=== PATIENT | male | born 1985 | race American Indian/Alaskan Native ===

== ENCOUNTER 2016-07-04 21:11 | Emergency (ER) | payer OTHER ==
[2016-07-04] MEDS ORDERED: NACL 0.9% IR ONE (21:53)
[2016-07-04] MEDS ORDERED: BOOSTRIX IM ONE (21:54)
[2016-07-04] MEDS ORDERED: MOTRIN PO ONE (21:54)
--- NOTE | 2016-07-04 22:24 | Emergency Department Report ---
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 XglsYsg9wgWvolkPf+IBg3ALkK//CQalaXNucWP+m/Hvi0N1rq9hJxttuJkZSKGre4YMIJsqBbI2JD+ pifCdxAzcL7nWMDZDCZ3/i7pOJ3xSuSa/s1v59r/HWYKt7uuOMo/AKZ+ePxo+GEzR3zyO/Glxb/C+ 98YeDfHniS/+JOj/wDCvfH/PDKhg8AcY4d5zS+g6k5DWleH/wAI9/lRfv1yN5yZWjk/AAj3+tXt6PSk/ uBWjyt1sA3/4c/Gq93BTmjl5QsY6nNwA/c8z5E0Ew7/MHAla1g+GeseG/Ef2O++ u5iqn7d95iALUt7i2dwC4dFr4zx3tX/a8stUjt76yNHOY+pZcWbzqEv8ZllJysOHiZWc4WzD6/ 6T4xL05Y6lvNEVYuQF/hOaXrk7U4zESau7B/BMhxgon83M+M/COl/D/wCF/wAJ/Cs4031KjG2/ 0oeEurva2i+DZ5cqxJ4m/dClG0tLco+x9Lt/+frH+ yZOnjl8LO0IW05beV3vwQxrmN0hETcBp4RBTEwbfw7RY9Qf8E9m3rA6T00i565gQgjZbev0yp/ 1Jmgtio5iNG9vriLD5nylQWwGpX1H8m5U+p6Abat3MUmRCEM7Q3b6+w7bd75RZibRkHAIfsf/ALZdPJ9 /wog57VQyannuk3213r4VPQQ/+tqM0SBJp9t+H3xB+CN7NBso1J3ev6// ATiRam0mpeORae5z8z4iB8w1c73eVYt1GlikrAhn1CFJJQUk/YlPiyj4A/HnZ+A/Efi3XL// SJ2AoMlaMp3kQml+IQg28SrEcr8e9x9Q+QTgs6lRszhr5yzR8c+B/GY294B2JG+1C2Ntp+ txS0hb8TUpS8I3/gQG5zBTY12ke/727g5z9J8+l+G/E/yT4B2wzM6f9zL9exrpwEEU7mj+0qHXL6+m8+ 3/XHklkKCkk3oae+fuvk/4wYAF4Y6fhYp1+1BeDNsC8V+N/RMdejUG203djSSxY/o7lKh5E+1239n/ ANseMYLq9/3S5u9ex8y/AD/xhTR7L1CNECVKUMVTBPJMUaI6/BSSwstW/ZJ8U+YkIQh2Q1u+ QI1MmeEZyl/yOgh7v81b/au+NrgwtAjCwWTa3gPw7rhBm7+z76nuF9w4zE9r8G4ZaH9Vq+Zvi3cx/wBt /NAD0yrbhbNyqwhBz5j/ANXNF/YEEH2P/uDgg650BbR3D/wU7FzB+pL1U6SkH0/wv4u+NTrCmXszk99Q /tE/Fuamu2XqCnbJvdm+Ms1678+WO6OLY/O2xdqzLK/mbjMhI3u3qcda4/8AWx+gRN9zcxMl/ rQmOb3go+xXR/573PH+l4oA+M/gL8O9A+YwfNcI2E/D39xCj5T5Q/ Ts1z5yaQpJsBggJbiIwQyTy0nMcb0vz3h9kn6L7P79Ce5Ie9q/6Ho+ x6RE6rnyeZkCtJyk3KlR5ocem4u/t/u8+Lz0Bzfs55o/4xr9zAwEYu6M05iQ2VZ7aV54YdB/ tV2hkkvcMS32B3z9Aymem56B1e5V/wAyNpX+hLQ5bqv5BosBkG0lO4gEsSQ/AIx5m/z4e3T/AKb4/wCu /b/u4TWxS19/WrtZscisFZdy7/VP5/q9k4ESsVBYpqd7/X2+srvfhlFnmKJZ9nyzfs8M/X5z/ K1ORfyFyfOsNyUh/wC//h+L8kWvZXFGFKWjA8Nc/fV0fgB7s3lSAvDQckOnv/BvA/8Ar5// RK3FBGQea7PxSSShTwk4/eGlc510q9RGc7mPKmVo/wB//X4bbjq5EWYUpuibJkg+X04zjt/ j0CozrU2Qsx0HBn0Z9RnRcAbCiQf6i04d/nn6Hnj/AA/J8ysPq2lYzq0msL5Ogak22fJn+Xn9x/ 7W86oZYttwSuhswo/+eiefL/qf9H/5dz/jvIZ2loXo+4fXf+YOL0pqWECcy/nAkiUGEOPd3trHUU/ 2i3nS2V9n5K/0PGcivH/g74c8Z+EkO1bT90WsC0wB+Fvwb/aE+Z0nrzdA89B6k7+KOut3GzNvK/ kA4ZgFWS+zf23o+n/Yj5C1Z4y7B1yeRi/+Mn4JcE9I48x/4ZDsob68ORHhxoox9abwo2K36/nXV/ AHT7q0+CtvVBnGeX58BpwxY7p8pGneV1+m6VPx2/7TF5Yma/sFW3+hZtKAON/auis9f/YS+ RV6rMjwLbXcp+S8p6mVmgyx01lmJeT6NjB/DmpWM/8Apn2e/fTD9KkVgGotHxOh+ xNzr5MqrCB2D75cF2fc/NUZ47J1EtsV3mj6xPgsmdpBqU3AgB3AS9ku9YvKbMbGu+ EEQHD3y2s7y1xWUjDCqiuH/BBukibbuB2Vdzb+hagAooooA/Kgl39Q4QSCJ5YBr3CD4Om90+ TI8UYkBhZh8NT/AKTa+VtkHdlpy0Y4lK2jSfhCQm+D/wn5d4N4F11x/oPT6dB4t9q2l6dWC5V+ KSXgLZqOzDcyT67gMxB1zxuEBi7HSuzs6aqdh3G4qlqr/dPz6n8N6GX+X2mFdmpu4+G/ 6waiNoA3pvp83/Uq4GmMeLVJdHGd7ZzgRjp++JbmVf8U3+ dmO7l2ZBf8Scx9DbXFFo4PqBNkis15Grv7C6ejF7SMkB72Tg/P3x53PD+Q0Cc0Zs+Jro9KgU68gi0lh/ 6L/md2nO5m/bYkn2DFQBEqZ+wDbch139p+mf1/GvSNHXyhCy/u2b5H/wCuXbJH/ wBavJfCsyRWMMLSszR/uZOP+Wv/IZ87x0I/8UjjvimXvGtfGwx5ObxVge+X+ m0LTwQWm6UaOotoMCCu5myntQ3xCX/54+fb/fPJau0PEYZ81T5R49gl7Bi26spPCNo7/ fVvegJzZjjj8OM43g2NoSKk6+eP/rApgTfTNJVLd7KZk8Vmb+R9mow1DIlcey19bndx+sXttDJqj+ RD5EH+nXFt9p/0W3/5P2lS1drabH1lEgPrrvde/wL8CSJ8jist96/ZIbq7OZEwIicvR/ 48por038mzuVCxv2FLbWr+v5/1/KkUyolDHRAad45/wx/rJ703IOrq20Tt94Pl522WX9n/n/Df0tdUgT +GP7/p/tG97xdHVlXW/vRqYRo3mjA+hLDe2Gy/ADk+vHwOu7orgRZ2TNJ3NRmhp6iS5/ pgve7QSL0egtvz+Tjj3/5Kq4wrEietGL8tgG1ciPn3leV+b/zx/T+Va+unsHzPr995pC/P+ fkokAwpUhZVXE6mL3It4CDlNd/a74c9bbn+ DSl7qZ0qplImmvgYXWdFvj64W2Qvl29Q7Tke9kw24y9Ar7R9j/f7Tsqnn98llYcY/e2p9/rz9T1/wrc/ i3fxf3/4/T/6/Bba6vH7lOoN7GqelipaO16i0+pT2RHB1NCJ3A/+hpHg8ny/ 3vERbrjE6Qqdzh9ZBnTeBP0f/q9gD6EnTJv/n4+2fn2Z5M0e4090lw07+/2//X785/VvT9pOXZ1mWckf /wD1/zVvk06BTUoKamUEqAyXIudTe/H/AD/0gm58mDbSZhnPjBkc32iq0tpnMog/TgpLYtz110/8/ Xx77x65hGhPcmGzsbefZk84+/fw9SJTLp3symp7DM7TJOqjqtJifsEM2q8hL/j+1L/p41H9x/oQ/GvM/ aN5WfeFryv7T+QVzjR2yV+RWxR2K78lbsWarE8858tNn2yrKuP/AJdPtH/FL/ZVhOmJ9p/y+aJkb8C2/ bFbd08HfylL6q/N94W8zd0pyvt7v27Y5/efbPDn7+45NCxyRTy1T/T9847t+n2G2z/pxs6t/BnRJPib+ 7P2SxIBRIcVLeJhSwi/YCawiefsmUmzt2M+C/gvvyVPgOvMxmj2j/ A7HDGvy0K1EJX5DNjLrD1zvUZJHIcvkjAtxvaM+Rv29PB+ jrJW5IR1fnLZnws4mvsgg396MD67aDp2rkJcCecBuoszH7l/8vEkB1BcQGjYSdd1+GCg2LkS1N/ V6n7kn8H7smvL1E2z7g7mqsE/lsxzGsS1K58/YbY/9d+K/a/ TOX2k9D9uqFhwmtY8nvjg4dviKZx0l7qopU2jzx0ow9V2LfHmNP7zJDxH/kA5ZtV1VVB2mG9V1GrEyJe /Zy8c+MvgPqTukEklza/HfejmamlmlcEgd7T74m7DsPBylj7yu1opcEF6Uc8JoiBl/wCCOsedH/ TWfHpP140J7CHp+bVw7teuR/GPhybz/H35muegzfH+gnp/plYtqVYtGyszN/asb4yG7Uc/nkZrW+ NWoald/IdnPo3tJxkqYqevS5PjM4vdfI6d4Jfk/wDCK+MbMfZ+/wDwi/xHWZc1Y1a+x/ bLyhjbpNSu1M6QSRk0eLkJAlgq7cbXn7/Ac00u0nH5rLdbWY9hlY/6ab/w/[place]/ACi2dOiVs4fgjuio/ yz06f/KTmbCm5uXFv97x/25vMPb/wH/fVkoPArNAfYKiPz2e9Li0+Z/wA9/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/ fCQFtQDfENvpe90y8z77coZMPDXPIxFIu4/AL/uf55/+t0qbz/9j/x7/wCxoAsUVX8//Y/8e/ 7Yxkhb4SdnjKA/QNq0hz3kBAPRPx1b9g/76H+Ny/8AfQ/rbMmXCm1i7q/76H+PK8vb6cDO5cHGY/ hEqr9Tt/HUN2V6j7gzmv/b8o9bv69Ri4/l+nr3/GqMtxt+4uUq8T4/Ofz4+o9P+ 8xwEbPDry5opz9PgmCyaiMl51+0xI6QWVrc7sWKS/df9MpM/p28j/x4BU2kvwVXtcIU0/fE0p7/ CJKl7M9WXrSxZUO4d8al/peO8DedYIK3l2tWqKd8BdrXdT0qyxnBnAfVNUC/7i0l5Ikn/wBHH2n/ SEY6jeCo+0H/AB+2Y/3eobFPbEl5P/s7+NbM5XGoEwVUyC8aiseaPp3AhO3X27+vP9Htv+Pj/ oui1N1n4VzoTqbdYsVWLtQ/mLN6VQO27bv0Q+Imn4wooD+y6VZ/5Qbgo93jkYy/lKjPV2MQ+yf8/uh/ el3Uz9f6e012T/Tpt6f6Ww0tui9u1ZAfHZeEe9szB7XNW9hsQ+y+poHOSVI5ekAq5a4K/ V28PZq1Kbg5A/jf8B/BNhbXPkyb/kR6MuU6PvscptefLm1WqOS3G1Up416pYWClQwmi2UMB143+ Wzf8XklHD0oP1kliELiP1Jx/VpeU2Zo8jvVEspicJtumKlwlJ0GaEy2Gi9BkvU/sE7dH3D8R/ zgsJ7sDuVUU9R6PPLNASB4h/cMLK4k5q2VW7nnvvdcp4U9hoCmzZnC5IwftxpOHs9ZQir/Dq406/ iOXy8S3tI/NOUogSSdYx4I22q6DpMg3okWVatEPScjAExaktWXJqt6jP0nvrUVr1ai/ hkiZc5chGw79Mk/coR9EW7s23Xm45/aZ+C+mftF/A34i/Bq+ 9t52K49R2NaZq56x13QOTchh217K1lpEmmmE6sbytfZuC+DvG+sdSMFR3MX/XYp7X1gMOx/ UN8YhSTY0o+LQP5iaTn1f2x0KhhubhEo6270Av03phKVmZ8T9Omg07TsQa4UG/pNv/ ZPyrCg1EakkSNY4okH/4Hy1bcGcJ9Pl0Bx1g+GApvw4ZKIxk/L9s992hEn907D925GhmSvzT1Q7/ gLGzZ8icjemaNxg4UJGWS5RP3eM7Cz++bFeQkvITr7Z5/v5NHD0b6/0yz9+O0Lje2IexltKp341vj+ PJGKAPZrOViNrMxHX/wDV0/tvxKQMpSP4zy/0z/S3U2osLi6lw6A/v0aXfW9N/Hv4z/ R79FbJRW3X6JfKc/Lb8pkKie0gNf9oyrmwt/ C5rQ0ogJmJzeT0mcXecb0c5vrwvPWnyiE0bxzwzazIdpY/AIJ+/sPXxF7w/ oF2LYnGv6dyEI0gGILwCUdoyz6V23mf+8Z+P/WjnMu12P2M+HLXxVZ+ P8TCWKRtcnX5y4HRNa3hfTasteK0pqto2Fai4yRDw5zcdmg3VvPPjHaqQlbhx8PL16DTa2/ ztWL9IAhoPuMe4HfkbVhOtTYW5xKoYzj8qEFhlMHmnWr967SsIsSGfrVrK9ZLjSQtAZXhD3/ up81iBKSVywrrjcvJZuW4uJ2UA4Ybp9d44D/OWqp9Ej7093jwbofio+/I/wDq0/Zryd1oP6cORYcZuJ/ gf/6j+kZ5P9k6ZX1lYlG5wytywryolc2ru3vSSW8xtzrrq/0GGCf/MHy5o0MQ0o/ EFGDqsesaeB20l3lfPR0/+f8XerObH/9OLNAk1z/r+waosIHTnJwUNwtXW7k++aab95I+e/ 8AXvxxxXyfe/SCkxqOok4k1ky2N3lnnyZcZXf27eFs5Qh63GhwX01f7gl00e475e7/5Cl3Z/ 1IZzaqgq5U5CvOsJM2WjhBdkSMRbTzW2I+Pdwf+W0Hf7R/838SE3FsX2N9a0ZuDSSLp2R/c7Hmh/ dXFnLP/qPIn/0lyk5i5KdOK29LlF3NKn6YqR0+5NtqV/E12wipSC/5jE8H/MQt+/8buUl8K/ FXh7hB32YKYFLD42ogLB4N8SVJ/wAu83+kfh3/PQ6273V/GzhbkJ3Xslv1kdKaZinNN++w1O30e/ zxKrAuzCD0SHT/a1CNfdq/SEJfXq2JNwEXaa773ahtRlCjF0G7tdPM+8jmtZ+ DSQG8aok4xhplMU2Ca8y3+3/6/goB29502RPi882FlA5vj9ktOE8tuV1a3ri4TwHk2fBoBh/ mH2T1o4xjI7r3cf5kx/CvUHmUfebaw+vOf1/n3/HCwoimzjL28ia/KudvLxcbmbKrx1/ u38WNo3q9m8BQKRlEuoj94/FrT5E9E/xbVXr+v+T+QMTH5zX8y7Xx1f9bs/631/THxUU1uxKK1Etl8+/ 3u7jrXqvsXNwsHp83lC/6z/JP5Z/TnR8b9oUtqdSPUhZ4yn++QeXHc/vvIghg/wCPu2/1/wDomLX/ AInF5/0+LYYRR5bGlJKhvMyFcfeimq9K+ON4Qt5FkpwN9C5ijzfntfaqq3anxPPb9kh/0532pWP/ MM41f9X8+kP+FvqqbQqIK3hxjheIM3H63t+PrvdFAucf0i3w26pK1BvWkzfbXDhvl/aLz4v+N/ qvvQfkcX5r6t4czZtg9gicEhP9f+Likeg3Hzv3Qjnp+QnS0P7VlDb6icaoUA+eZ9f0NJ0PWbbOoJigOA /QstWOPNnSPxG3yrgeI/EBwvqE6xn/AOg/2wT+u57I7xCtv0iQcK3L+Otxi7jqi3bShbRdjRkRQ2UpAt +I/aG458o52n/HUoViH7Z48x7VK4Vd9cq8YXqww2vhDvf2Zh5pMQE3YHGJEDWYTXKSAIOAFgl8XztnwB +NPh+3+F37a/cP5MKtuBz/+4V9QeLAck45SGknVJN2esRAeKkgR0VTqDi5xh6RuiW4N2TvIqt+ artfbh3j10WmXu7x9lxJwWgwdmNORA09/hF1J/8Arnivz/5R61kqc3w4mwJcZ/bN7J3Lr4f22/ y7GyKuHju08QW2eIMy/bAWhzT9QKgX+Z5jBzUspTdU8owLqs8RkB9qh2c0peP3A344V88l+ 1UAHyfrWmrqfhnUPDMzOlrqUN/JOdyKrLP48NZuBu0b5/7UcIqoXipwBNOjyx4Aab78ofqacp5Aff8eU +xm8i+hzn/Rx9ogn/8AbD/IvgFl5YnE183N/ GpajzYwMjEy0XdiX7z1Hk4rj6yaite2C4kDOSJ7X00b9Pc8qdA+SS77lUrPb9jb0tFClHd/ OGE9i93v0RrgC0smX67lvkmYvtb2vwPexQGiH8B6v1V6q8ycIrqmH3btzrA/YSYvAw0vtsYirQ3/ 9kt1sAbB/wD9O+f6l0JbfAE1VgjfQ/g949pZd97A4hAcKqIEPsp/Nv1e1brXYFt83dq9qcmM/j8z0+ 8qjzPm/uf6xz0/z+FwmJ0YJWT7lpl+BP7EBh92/wC/564+k1aKoYoHg0ht8dHt+enUf5/ ekfmCZ1CbvMeaqz/z06j/AD/d1MHOTJIATEWLDLTTDPGRWH/hVdvTp0+jCYtEgd9efDK/ep8g/dYHkcc /9O/2j/P+hjUKklmEatnyunv+Mg3IJY8JXpUXCHPn+vZFO3eMD/5Yj/LpwEShYGMWj93pqbM/ zRvh6uf5/Wr3Ae2xpkkZ2T33rZYx672diQOpSG5nK5N5k/y/zgADfBha+qgDmtpZQTwh9g+ wdPJkDxeTfarcTef/JC1Xd81Ym/0U/zG7I7xFkc0qSs/5zo19JM7/fEwmQG2UoBS/AI+ h6n6ZgM1ybjoFc9+jgX1K4lB47g/hIviBr1/pNphDh2hVp2Qohrr8+/0GC4+hvonL2Mh/ AgW572AlE5e3V/j/MW3HWcGfFyb8B+WLH9nxs4Y+P9wrJoyEW7mbW8F+WDtymZbJo5f2mffel4Zl/ vRUFsasMh0wrA8E/Djw/yBooxJ5oqmijii1ph+h3Nj9t+2SeCK91/aY45ZOeo4Qr1cS6mil1st2VcIaG /lA3PgSaupyUw0+z1o/6lnzKeYxRVHejhf6CoL02wfWATeRcsyMlcZXa6Uhrb9FH4+ Aafn9uy2XnWxzF1QhjP0AUYBJgzLw5i00mfxbTXmWfHckxZ/mQzp6l2l4RFZ4qsAfYHthj7me/ azFikmiMWyn96gJH1cZZdjSMMsopeIq2o2yg4wir3jyavQzd68gW9QjH5qvIgfA9S/cT2ocA6vWx/ uD6hL9K9V9B+MmZZmmzb6c1aOeXcB700kZWzRcZ+PNnsfsAdVnYkzMaK2AzJqOY4CqlHjefdE/ZNnaV+ voYbVPlSPfe1xUUkX0Gze+aN+yX8ftA+ZMb1w9T4+D3xO+JC19p9uhm1Obc1t1O/jH8K/GEGl/ AVgdnlyvZBQ4n5m+F/H/HCT63sPww6Vcq8H8lQ4NXrg7R43w9Wu5LO1qYntNw7df6Xk7Sb+ea9t/ 1YA8JOI156kk5aICFXT9H/2kPC/hXXrlfOjj/wCER+O2g+YLp7CcN/AjDy5i999V/NjCS5cxY/ g1Zhi8yB7gX0kd0fGsCAbazknb8/p3/Xc5NWjS/tV/sY/grgi2tQuEKr8/aq+IacVEdG1I7Yt517V1B/ jX4h+TO4R4FA0WwXtBeQ3F0x+KjKPn1TTT0lPoU0SqY7oj/hYcXaf6SdAKYO/Janes/gv3mIiMpL/AIKR/ t5+RYZ1q5z7Ed22YpV6tjTZ/aLm6+twWzCf76LS2UvXyE1Ol8yl7kdfeEQr6s5kumvdbPbztb6id5q/ 8FA/iF/wUL+H8ff2Ygo/TPP3nfU1Grk09K7by/Hp/sfg39O5U6aZoV4neGtS5p9Mwe6tduf1K/gvDLqi +X7PUkILFk8kwb3avp/1QESg1di6Xy4EG1MV+Mhu5dX19/F/9of4L/vBlXoqA7p+ Wxz5vaOw2MLli4LtpmuVfvJ2BO/MWk89sQoTfy9W/fo3QcljTmixqVOhbhuq2yynvHznlhdIk4wOQS7k / xQPVXEw2FRcReCWPdgrRsI78kJLXbevMoO6aDkNJmyXyZp027FoCjZkFQsG2im1MTClqBVjUzUzGXCiX 9inhpkW0Tze +pms8Vh/watuPNAeHuojKk6jdiKjbNAGo+gGUYw+W25m6/3SXKMQ8/X1/tCM6k7gNgKP8P+ Fj2Mn2X5c14/ F2BLlWZ7h62wPI90VaLoBqPxEeo9rb2bKegNnT9PDOgq1EM5HOtaD8pVHKKL2KXV73Hm08H8vALQRXuM qfX +v+ UxOa6k620DGmFzQn8T9QgMWaSgFYwGYzymEddbYg0q4DyGcLAADhneRrVWxcRWf46cgAtMlGqymThICW mHFyO5vRVOthCMuF8iehDWfAaxGfc /C++2YnljFPfgBF5O2v38jA6pn/Z7kO4M52OuSRgo5jAg9Eu/6yDsi7RD0QLyaL0/vTJ7C7Q4eoL+ lw2ul+IIZb+ur4yWOo4BhBMlF/imoXLtjfLyQ1sZYP/03SrX/AI/P/Bo6p1zCjko9ftwY/g/5a/5+ vXPtVfU/U5z3tbeaV1Dv6zXecy22cR7nj84epz+J6YXsCwKpRgcZB787gpphZBmAHPpTt91T0hC32m/ 49tRt+06M29QcYqqm5F0tUX6E44g+vtYuIXltrDz/LEW2q1uNr/v5rGC3/jGXt5Cn/TeM/ UueSs3V0qww6qK4jQeG0+9IYftHp/r+yjPYPImLAWGel9J7ydR6WKlwLtjG1gr6GxSA2uvwhkAg+ dbf88/J87z/AF/5+P8ASjx+WIyl3stWsVgERqg/ANf/AD+fFYouFErMrMrR/In/AD1f0/8Ar/ 8K798TYky4mWIV4j8/z3/SgSy1SkTmsivNpDJ6/c9s/Tv/JOff321U5jQacJqjb64kkr8+ eDwUet7CGmRNLHAuSBG39g/j/TGDXKuzYVtzb1+56J6/dBEo4KrdMoqe3LIHq9z0ZqrtvKoJAxX7MetL /tEX3wp+J9jq+r/MG0SdX5V3lwDxX14/1Lw/Jqfxe+JvirW/B3wz1G+5LDkVOm8IcR4R4I/ VqLcK7l7IdNkIczwxc6omMdv7rcvOP518Mutp/u8D/bSF7qL06F/ eIaf00dCR2gvcsTeoUh0p0oynCo93bnLRMqmG4LPo16Z0NLtEh/ap/lqmX6EsQWRY+ 3Rz1bfhueC752wvQy0Uq+RlDafNk6j+D/H/FHLXbX6v+IDj0G3eK8V+ CNxkm65o5JbGurvskDVVKpSfhXpsmtjN5Budp2h/ZySWTp0p6Bt/nZEBmlmsR4v9z+KrDwxY+ IsHwG9p3adMHyxNMxnW23llXOj2+sBhUDHNRKVyarqVahvwBLfuCzPcTMtJf3ZNUKf5En39+ epR4LGKzOHly5n5REVzj9N/6Y8Wuv793PbFoWNn0d9Ve28C3RqQjBFjXfgf3AUDKu462H0B+ AbLiiNfjjtPFMVdsa3Mo0l0a1+q+DqHtQ7c2WeK77idL9HcBJ7Ttm94bha6N+MXwr8M/s4/ oRgHjuE2X8CH/GgvFoF2Q/GJgy6X3YpLQtUonF/AniuyHwl+SmemB9U83OcQ1j4ER/G/bQzz88bcM34/ mxbrfcl073Y54z2E0/Yw0L2KXiVpUtb/AJa8H+f6a2qdp/kGU8P89I3guks/ QBqlg6wD85UyDC5yOUdDFiAMw4q/fk5UjnN3pW+j4xqUoE+EXg/W0LUNc2eiR/ KpmGfIF9akWXrZ39Rp5onk7vK+z+M1hx1KTz3vq90KbG/Qj/dIh53tSw1cIlbo9bw2Dr/3NwPX/ WQldMo0IUR81Sz89EmWn4oFm5qJ1Fsdc2Gdu8l3qkOJWkp/MGKgaSu0foXpkwMju6S//H1a/wCmaP55/ wBC+l2y7kwrd9Xhi1ry5hp3E9A18+GY1EwNn1oaEoe/AJY/9FqL1T4n/stv9o+2/ZbTNmf+ 7jiV1JE8OzeDewwi/wA9Oo/z/e5WVvjcaR6TNXK9fk67snoEA3nUV+o/0n/E1Pr2t2zlg1lB/ r1OlmsLHOSyroQoOXQXN9RFe6at71/6EWWQALWFKQ8pY/X/EBz8hWWbxdKKrKvRYuO4ww8omjK+eeG/ jpeCg2a/L6f54/o0SSUvvb4fKSDp3HgwCK/AmP8niNLbkdjh8fP25/Dp+ubb/y5E4HTKkuVdO/79/ nTkHpe9thVe7liPjujyl+jLCmgvmWI557JfZjg3/wDrzc/6P/pHT/i9s23ROc1a2ILuqD0E6u0PA+ qSfc0Xu5Z7JMgv5itJ468x2iBfJslRxvgPN89JmHN6tInR/Clp5f458/05j/Tv+MY8Hvhr9gr5t46Kn2 /fPFR0rFAFoP4sjDMx4xU/119Bo/1Wj25g8/6Gr2jkvl/UVIjjMoSzeG0YmZJHzGdM25+ nWwIh8k0edD90dd9PhTQ6+m8deR0Yl/pJzXK2K06ip+fPR/iEhPT0dyH/ZU+Gv7V/ w12xov7mmSi3rub4A4V4BstC1VHZ3XadjVwylA0G/fN6g6pw0nqE/iD8P/Pdwkf5Uz98y9m05dmAlns/ ykv0w1C5k/J2etXindg6ScaBx5o1c+z7+xR8N/jY767V0oPfS/dK3Bcovygd8dEr+ RAmN6LKaNyQP7ZFAic57PnWUdfYxBagCwb2GNdhw7NYN89jJm30eFIA5KA30W4uie1s38xd1I9ZBBd5A /ZW+XojTS4S/wDhKvjW+sftE+ CbkrN0hygmnn3L33tpVpujJOBlVp1AuBUk6RuIcJ6Ypn2ia7ivzAa5LkstA262WvzmVnO1k073NEEJ+ 1yQ7OFgojCSCUYEIcbtrA10/y95Teo3u/Y5/aEt/Y0sFwjV7D+Hep/OszxWgOCAGqqUZbOm7JrR8BY/ jP3diBHq5c2lbfKK44UHa8P7KfcXFNLYsWnKr2p1z7cH/ XorhIbvG1d6bw57MltB3CFbpSSEsQAcIkTt5/6c3u6ibCE1UndH8bdTZ7l2/ ERk1Ul5i8hq6v0GC3B5cCPXued40I4hs91rVKOzE5kyhQmfQI7sgR+Esvd9zpaKeyvh2VVlScn0C/ Eap79U8zh9UkGkoao3NlT+w+B/EkEA/pSLa8svS8Qz0O3WespW3p7N5pGGwjW6ZS/5qcQF9YCVhHEs+ ZW/o8urzj4eirLrHINIZKPfrVoakt/z2/wnyeTOr0H9mEg/z/8AX5/i56m8mdZVyzL/x/ 1LC8Zn8WPgZu4/NzLU26j6uwtk07qVy0fwli2ge4qphft/AMFRP23/ABv+xB+wb8c/2mPhJYfD/wAQfE /4YH4Y/wDCK+KZR6l3o5ffayYdt0J/i53U3OVnFUozmD2I5zp1KkLivLv9J/sXiLT/ACtUtrGa4+ 2Gzd5yc/kBaLiNzoDoY6IU3tZq75rMf3jJ1L7yL0xfbQ60g/7u8D8wJ5f94eiA1pp3VGF+ Rfnh13dV4tS59cx2oO/4wWg+KPxCHw3/ALAv/dehYGx55Nb/hL4t+IyWYyBOvi9j/ SqcT2yf9pK5L7lMOiwsvYiHh8xksFuBHHLp0fBF+Vfwv/4KX/0HDh57PvGrii6q/Dz/AHD4ltU+ UiVDjC2UlQCN/grXJvFNjokmt+AtCEcUBqDs9s78eKu432B2sV/2P0kDmM8+w2vmzqsIh157m+ u0S3locXK+In/DQd4J9OqKwX0K/kG1UryJ/jPD3G0VxV2VxYMbA0q+WpoaMrfYnm5yjS1C+CtCv/ MslyD47yNO318/SBpPsxaw0ru0g62TQR7XRb9n/IeOrga3thi2GA+G/wDwS9/5AHsoM2X3O/Dr4f8A/ GE18ytps6Y+GqhKm52M7X+V1iqfBLQ5O+CNGpuW1N4AXvj/Yhv7/ KD54YqRdpDYtm2Cy2udtSNM3v5c9bIeS00qbQ/wTK/1JNynp6X/MWh5GmDo/TXK7wMdJ0A+I/ v4cM5O6hoS/Yzaaut+VEOOx0bf9pMoi7/No6YjF2/L83BO7IwqT5+k2lxqugHawgvAs7dodTY/ fG9Z7Mi/t3/E/wDbg/YM+Y83Sspy4m2dlHAkP2Jo9Fc1a6c3gjJ1ktHAeI5Fbarwi+ Aom38awDnIvXyT0c2021/TeGax2FyuekJme+jyj61s5fq4Vs88+1+2W18veUNLc4aNmOk+ W0JklImiiI4+c+n5d/8ABM//ISPisJp7gC5en5Hju9/N042bJI21YuHq/Eb+17j4V+YcHNhPn6V/ SJKa5JvVdimLqvuhtsjM8Uad5oM/AJce27f2S5L9s3PIsIB6Ec9iCMn/ WFCCJ6AOObeOyN9vJ6kobyWCw+3+u9Votu6uB2v09BkJc+nU/wCif+T3+tQHtIddZZdat5qtjMeY+ mmxu6bEc/0751MYw3G55QnwczGEOftoWhd2r8t/n3+teKT/OPcy9f4Mf3ubZIwcn8zp9L5nqwo/AMt/ kBha8Foy0qF21dBcpzcrxcbYPYroE6736ApxYb5X74sU/yZ2oRqcfuOMtITsy6/+tQAa+n7HxkSdimH/ MThai7c/AK8d/wAqw3+6fw/oW3bHyN7Nohrqlm3VR/mn70xl2/Osd2bp/D2/z/8Aq/ PqTxtZ7Px6eyqVo4WSH4J7nmypG0Z8K84My4AYjL41Il5Ao2j7Tzsb66cs2T/vCt74S/Y5+B0+ o8iNdeYn74Or/kG2daaYS5cB0g+OXiPV/lLoiynq2xybZMZJE6pagflcokP1mMH5Ro/mf+ 8YWyT08YSA1E+V0saizj6jC/c82LcDsrd7JmfZRyOkNg7D+2TwW9z/AKTp/fov4DRSKGwVd+h/8U3oep /6bZ2P+eHq2f7PcStvDi9WancoFVm+ v3OIrSh5Ze7I2iSCUWnV1FD4ZCcbavKXjRP1iAGSyxodpHNRSSFBdcmyNjklhMNITJCKyds5lAhMk/ QX5ez328NxErkm+L/B/hu2+LngOCwSH+0br4g/QOOsK3myD8FhO4fPSwsITM/g+ x6BjwPN1IEmtR3hFM1i1OSiaNMBnTLwuYsrOff/je7Mhdzo+DEVpG6N+YuM9S3txlcX2maNebu/4u0HS /Hoq6VbD2cnbcCakaQgozwWY/3JBaZf54TvuL6X3YPwct1z/Q/XXfze0Hpa4p+s4yY6Ai+T5F//AMu+ c4/X2+aPhboM/dXHy97doSn2onxD3/Z5+MPij4b+Oft9krjZXwbslsjN/XF0V2vP/zRlt7N4+ CAoLx11Dv8lr8w1D5dMHK36w2Lt/AwbiysM7O/w6nF3XsWAP5/ZY+Ax52K8zim/hE1ScFMqW7+ OTjQuM0G5oQeiC/5Aej63/Yn/AB7/PCL1lB26d9/s/vBz1Ike4V3UvRc0M+M/cL7aB17dt+J9H8H+ MNPm8+bz+ie0j4Zd2/ov7+1/0XVv+POf/j9/48/kd7IFUiPO0RAXo3Yf+yfzLruZY4AUZmjgbiU9VY+ nr1oA+Kz8Cfj/FCv2fcx4OxzE8lmBc2vvcjX2gA0m8T9eJ/5b32j+VrGPc8yIn8/P9k2f+mT/APLn/ sLnuZsg5IwnNfA5mXam/BvxErN+3cDjB0o9O/6J1/8oPvHEx3N/1H+i/ZPf7Z/u8tvl1vfsTxc6FY70/ wA//X/Sovw6y1avyFFnd5J8p/NNnF90Wbkh/oi5xpKjyrUBxjzAeO0zGeEUTqemSQ1/+5E+tyM7gkpz/ wCoH/IJ/nHhcdbuecPJ4T14xP2/kc0S8GNJOh/386T8Zb2fHumLZg6Z0NxJpa1Mro/+/H2H7F/pf2yz/ Ht1lpdxMQ6D9J/z/vYR1z9rHqfKH/1/pj/DUZeE8XvpxV+3PoXP39M1ChQCkU3pmljoZdAdE8o0+ og3H8T2d29A/SP9FH/Hn9ss/wDl9s/sgNbFp+e87LLjcW0x+ Kpc8jK2pU09utj9NcA8x2SKMOZDI4YtEsNJf0xwgfu/APSv7J/03z7n/YxXdjkVnAES3KitgVm+P+ q6zw4C9SrjStfa/qa0eVLh8/tjiLRBr6671+YCrIT9s361yyF3Zx1nC2a1eHP4A09ua/o/5cr3jeb6+ 2f6T/x08yaAYDwlO8E/SY0CWg5HsSD8y5DUsFapcb4VjUmCDK31n6/rYt3c0v/10/ Srxb9nMj1sdBfB9a25C1/5/lCR52jG1mkaFcmRYv/gePTnHX/ 4Q2eNlK4h981L7dpCm1HC2jfF8fx1Dgi3/wC/AkbFk6sN+fvjvpi+Lvhz/uQPwyfEsPL7G1/+M/ IN1Qrkn7Dk5d3VRn+TgjOGoi550tTR/j2/3oGm3v6M524oym7Qxsiv+PK8/wCPO8+ lBpoXADiHtDPh7rL/yz/z/wDWrH/N81ZvRn6v0yLe00Fo7tQ9OSeg8Y3mw5Ibxnhuldj5iOw/AA5+ NpI4JfIx00S3P6H+VLfGWcEu0N/27qrrxzWZ8yzF6mOxHjcRHbUbaXH2T44yjqO27z9+ 1jiePx5pjxOeCkG8XzSIucb6rkMd67uyJ3dkscNWngupc4jt4LuvZtk+ NHoQNWFNGZhujpUizcdLlJBGWJYBV3i7jy1jnM5/wX/pn6X4zTi1lrq5/sjDqoCNRIGndkS9A/ sT5NpHbHIz16qhf0xgdB0+IGvr4M72Va3jZWgeO8v+Gnw/F/ffb/VEiu1s4/O7/kgUyackE0U/ pBh7Z3RvJ4T+Iqsz8fa1CDrjxx2sV1pni2fRdg9lncqefnqOsCAh0+lHUs2h+6s15cPZR+ S3LKKvn3rSIL539eR8/pn8/vIX7lPlEcX+0jk247T6V/K9ph6mIXq34Dkeylww7a6fZAqyzXHE+ pReGPGdtYQ/X6ZFRLld5F3dqMndgYL/AB7+H/PZplJAqGX9P/jz+0oopd4OnFh0f1A3EcSN4doocP+/ 0z9PTp/+fdL4IJhugAouehsz/wBYj/6ub/lh1Ppb+tcXr2n+bHKtxazSQn/U+Sn72HP/ADw7W/Hv+ lblhdYi+8wZP+/g/I89Cs2XZ2VqsratXNFX8n8//qoA+XzNi5S5rqKu8d6MDWv/MC8lYVKTDpf+W+ oabd5/tG68LyA/dX0YmyD4eluASgymd2LdZ2INPa/9RK0/0c/qZEu4p0cr5owi+Zba3Vl/p0V9un3/ LqXerJKV1vSZJHA+4kcMUY/zx+XGaAPhn/bKcysjF5kis93hlrRX033w9/eQyjP/LP1uOFiw/wBemB/ 05/0ZY9U9Cl9/iy/MX8CiPrhoMiyV0hI6Kd6xT+d/7P3WmL9Xn18aux7Mx+ MWqARzzPifUyrTau7sAOL7m87mTzbzTEOG3HSiZ/0yiw/Y/ vEmxaU9h8GQ0FGq4enksjxx7w0I701370x/o4pN4nMfUEnjf81f/sfvPN+vbv2+wg6fUdcWHV0bp22qN /8AX+h/Emc3f3ebFp6DzKQNYbP1x1x/39/q2DaFzj+HEtloaNsD78X+WeR/f1Iav63AOvxm8/P+ iyEZkF8Ox/ik/Xp9P8/YeECi34DEtqZhqr5u3ga7IYNgZ834jNgX2WfD5f/w2Y2DY1dSkw7kypT9z/R/ C/gPw/F66oRgc8z/4X5DP3Iy+6Rsb0LfG6/6nVtphaJy6nw07Nx2Yl1Pw6SSdw1WdaOc4u6v/aa+IHg+ +8u0k2L1amA8Fa/wR+T2xp4k0m6JP6iyo1N7gNxxEP7k/b8VG5hTBy+f5/1r82/+WG7dyPnEq3K/ GXqcrK59Ih4yh/xf/fD5T2twj7/oih5w1dG/r61Z9sH1Y8hsKZfJi7+/56L1QutyyetuLj8fV+ aF3klm6s8e8KwBXwfhmZruzrUXHFKOXmdtkBejkqMIyuE0pORtgmRYQzYQfF+4w2wKg0JN7NbnylpLI/ i+nf8A/X+lAH48/pocWq0xL+2B8O/VQhCh1W1+7A8X8C8Mo2oB1ySMs/yS1XfAweZlrD46VwhHzyJ/ pl788m1Izfs0El3ApRbPAeMSZL+g6NE/2R2jsxnF/DDm9xiz+WdZaUtcjGip48D/2k/s0Pk+d5gsJ/ by4qoCAplhiJ/Hh5DZCZXOT0z4rBg0ShlmuhXdg+B/vp software support/r/rWwPm0OuRaPR0TYdb/ F3j46BD0ZP865Yz2yi7dDZg75/ebPr/8AX/wsQV9B2gAlKAt6/T+NukfxIuOey2v5NOFOv/ kUAVlgVSvzKyp/Bs+zG97ye9+EOFlNrhlj7y1Thcz2k/ncqNhlgq/Stefania/l/4h3Anr7tMfyKG/nI9xn4eE +1g6UI3guF72O5/kOaZg+h/I0AU/Ik7sG/MH/Yb4bPtiDlzjX/AB9v/re+n5c8RibwCQjPa59Ahh/nn/ Y9wLQkE07XUqygk5hTyIub7kmKX9hF+h9devJGV8+ y9pqjQtzdLhIjEvIBsl8BUg3q9y72mD22PSnZwsiiRav6a5u/9rusW9d5BhdNn+TTUWAP2qS4wkyP5Zm /AD+fWvav+NfZw0gj/C/1oiDKBJDuqv70/MdmKeShajcV5yPt2KnZnw/Hk1vPxoEltDf39UxPsG+ JFkuTaWn/IGpe5IrNp+niizYYgkHpytk1LYiBN2ad7126y8JY4OCPn/p09ma3p7I/ KtuaGky5Ax3YqfQvTT3y7T/RK0vWJqUWs99bZQp5Wb4FEpau863mnU9KUi1CXO2LFXQDXVBVVICPKDNA HDYDDW6G/wDBS+k5pZ0BuqU6L38KMaC+I/i34N/YVhhMsMsbAQtJ6R2CEAvC/hGlqBjiu92gReqk/ yUFk1B1hiLrJ+/K/Kr/AIKC+ZI2uM6ZA5Bqz0f5JtMPl9s1cmrD+A4XjOBuiH+IlnvHlB9Siv1NdBbk+ J/wt8GKtJsb7qlqJvGdGFbrKC9rdTZtg9qUbN/xe+Oog9PoxZEL81VLbD/rU2Vvs3s6b+CM/boLOCe4/ wBG/wCEw8G/nwwoAUT9zmiF74hztG/ 8CDjJXl1md7JqlylluhyPpSnDyT40kojnFE6uQF0j4sgtso7p55nui1DZX9Isr+fW6+x3mj/ 2t45Ao30amj+JCYT40G+T/lnx/qP/ACXnx/2QpxeX3u/ZPfSMs04nrCU2npP/cZXWqaE8FiJVOUh/AA7 +[place]/PN5/eoDVYd8r6Ue/jC6uJ5/sfxG8L/Y/GIvJ/ffpfR3dsN4kf1RClfhxrDhh/AJ7Z9+/ dYxi0s5HSZITzK5dSYP0/J8z09D/h6bnqukqu8CTKJu5+5X9ls6wyK/HWg+Vc+NsMEgB5g4B7+1/ 6TkqeH9u/XTW2qA2S5MwU+KdL/dMPT4z5R+8s6N0VG3N2PcDqEsJdUQq/AAfu4/x/ iWT4ZKmd81qFk06znU/f7dfx/abb38xXaRvVxZbqhq/9b/AWtP5Wuqw5l7sscwmYF/u/zx/ t0k4FVCrbttFyjwS/5bc/54hhRDbgmwQ85eM2+H8/x+zWxmmr0RkcNp0Vm3bh9qN/lJ7PU78r38GeU/ cm/MEjy2wqZ3jPok9vz+b/OKud14u/RdBG5wUwhIrdazc7+rf+At6x284b0lmtdaALXVCzC/ 1SxjV64F7hr3iwBSy2aZjYrj/8L1CgntPhfmk/E/xB0Xw/d2+ yycfdROECygKTmQuGzV7GaAcCBC9ApncNtow8CcyJ/K9upu2HNd+KLvR/DX/Ht/ bShAG60cXaZupgwB16xVexiLnv9FhEu7keHgrebTsfdShH4BV1/wCJnqGoXVv/AMwu1/ nXnPgXwzqWseI1+GdzkTRpG5YPurzzS6Q5RF5WnoUOs73Yk8rU+uIZ/tH/AB7+ EBKr2nZIfUzTb0w5S3Yh9uabNjMz/ZKqu1k2Uaj1Qd7OTE3c2ocZXQa7jmSm/zXpxeATyGkm5M1C+G+ qH9//EBbrrRbaa4Fp43/f/YS491Y6/tj7H/zVkFRsI4o67i4YS0nZZCAGreNpU9rd9ib7YN22/ fUR6HTL2z/oNro8fp2N7Z8YsGYZ/oUWEvY2bTs+VQCPZp+k/OIevm4YwhEUpsOvvLDm+ W8N0Y6bE8xAu34bBf9EP4220B2U/hEMNxO6umr2Vx0kVqWtC9ezIOVBi1A/ wE6KalAT0e9K0XXn1HpNG6n3BUps+irKGlh6NKyTcu/ bk8xzTl26o6v1v5lHEKxhxxPcwmjCHGVDGRvypwPiilkFBpkjYcqm9oUEHTEk4N0uNtgD3gyGTPUDp9s JxteNv /IgI/WkVBPvqf7Lzv3nQak2TX1QEd7yU2eobKjuY5+/DcM6WyND3G8xOt8+Zcf3ayzJa4ptlh/ 3TRpY8tu/TSX1Srvo8oPxqGm2Pqj/PFm9Ckn0y7ap9akcJ/bj+LIhaqCYES0Adac8CwrGu2w+bb/ 8JVqn/CVfGjxjaWF/1gFdboS14+IKieIsVZgaerTS2DRMa2k0jMFGRm3WhgDADby20AV9i3vE6gT0xF+ ischi/wDQhzV0EenjVhdJxk7vwcpVGT2h5jl+m2gaIgQMHt+1j5+rEo7Z7mk0NRzgPyfLdkquO+ o7IssQkwhT/maSrGF/uL+R/jXfq3FYe6M1tVtCgwvXp/2Jc43s6U+ yoespjkGD98Rzg512suFKwTWECzwC711w/r+aOuQC2mZb5ka0dy4P617LB3+ nXWHcqqCEHEB6fQ2U7PuRd+kr80Snv/O+nahr88q3T/ryxbIwy5XvK6GP3B9cxwQS0v/R72SBbtdj/ yTZir5CdZuYpWVOMbDSqW+G20zvwOszGb3os2VVWwLdYgEWTW20opWEntkLHO2HzrG6/jP1z08m/ kZvir9kvoVyF1L4m3lftJoFxGNQPzM+Lfh/+6SumGFHLyMxzx50cpAaN1En9y3VSbnDZp4olX+ Snol1q3HvOl/N6L1DUT22wxiU/ZvfilyRmwfvKWYSREPfqcwGs4EOGDlG0Ki5vI5ajfob2CeSsmSpE0R /o4sRbXEoq4W7B7EwYE2u6bA+xcYuS9igekb+C9emATk7pos2mZwc9NqUcU0i7O/X87re3wa3Y/ z38Vunb9d6XMYU/wAU/FcV+Hei5PJRXT0aO9wjWiNLp9v2fcdT4u2wEt3+j2xsJ/ 8t1NqjqDnn6cDZy3cg4coOyz14uaI7S1a0vxLHlQ1K8JFxog8sizbGHuH+mcPzu39z1d+ KESkcBWwJ1U1W2iug/suSXaPTpg5DrPo2q7zr7p+33t5/x+ 5MotxDFm6rDlao6sh70FNLy3oxtdV7TMmHRf0gxswn8CJ//V/SgR3pI0qUS8N9j7/ j3zy17JVVvAlA4gw/AF/Lv3rO2P3GFtl84Z/PJYENcFxss21WIXZnkOfThdBT6ubHmvq/0i7g5FpFr/ 8AZPiTR/tVv/c14yn4i5pv0jS1Gq4vlt5fpZ9gyL0Ogzg7E4Qkp3K4zsxQ/wDPAmfWNNtPFtxm3/ 0XjxD/AKZ/x/f8f/7ZjvyQXbvGuNMM9ewjS/9dPf1Fl/8AX/wrB+dgP9AwueF/YR8W4bfD2/rQB8m/ 8IX+0VYyEQ+XmwW5xgqpHq5IxEiG6S3k/wC5n8//AJB/z4xdk9Ub6Gz+ RO8E2znWtWTOusu2Ig4q6ReF4LRm2jm+kTmFhUbRU1F/7/gZS3RVj/Lx5H/L3x0/ 9aW0t3Paj510MiNhItrc/wDP/wCvXZRaRp+pW+32sd5f6/t3Zzctk/l65NrKbncnMnvSGi/ pagbejfCrNwxnY5Q8x/1PkT5/s/wTd+//WA26mI4Lx3/4/zsgIf3Y+D34WwNV7D+G45IZR/ uab273vENYH0m/AIlVx/whFsbf/kDnjR7ft/y+E6jQgrsMbfAu5bmd+z0M8l31N2QzG1f8x8ofitqnZU /c8sD6/fHsSsZP75j6Q/Mebklj1t9KjS4Ft70ETh8DltGh7C5d9EBg+/m8/wAL6b/wm32i6/ 7uvAwEv3I9N+APCvhiaHQPCuj2+mx3E32/Xfz4EmZgeueQOvA00nShvuLF8leyyb/ j0hjrUb1q6T530T4LlgcKAzNBt/8AXOP/YRAez46J3keLcedpleF2kl4P5cm/z/fhi/549h+ wbYYdodTovJwz4iX2o/9J0xo1rOn5iitcx9S8UlyRpliZqmX7/b6wJ161xXhcaOpsYarJl/P+f+f/ BFv434p90EKc4Z45Bt79caMF5brmVK4ir+v2nwt/aN/ZZ+TD9POnz46gABh8fDV24HXfO4dG944lhP+ HIr+VA6up2sks3WaGp9EOg6CkN/44k98Pt+Pz936/BL4s+Bbj4l/Ypr74Sr2pxN7QVEJ+/wAMalsmk/ s9twvn7A+I/A+ur5Z0qdc+XP7s1YjOKG+7Bs2S4jl1JmiXZ7D59hF8oj+u91Jm3Wppw/hB1s18dXq6/ dYXaxy9K0cIC0Mqov4xvQwG1d/wPrJht/tE/wDYl+bQ+ZwJ0qxAEZ5eqBnE27q/ saEHXUOqiRooS6r4MP+ w0UUYAJzgfiRhkhjNCPZVKNtaxyVvwqVWtYEELmqvzY1e1Vqbz8U0g8PcGqicEE0VbOXPy1wh6xVT+ l8ipQQ0NtzEvlzz7UT9BoU8cZjP8ai942Z8+bZz/vdv8K/Pn/go/wCKL+L9nG4+EWjzSR6/+ 22854Ovh26pDqXQA/MxkWhH501l0i2+5tMDQ/sejCtYguwbEtotXvg6ds7/ 8K3SSqc5bHtatV1L6Q7vmcfviQ9o+PniTxb+7N7ylGkj7jNtew5E5j94Q1xtxThucV4LZB6OhE+ Q3A6GvL6qx/of9h/UdF8YX5rzU1z1ESDr9f4axnG+Q+h65/RceL4H9GWqfZc6fyTt53EvavF7XFtd41t +/vICquEDw6J/f/6L/Sum9grjUrxrxm5/3+efy/C0Vn5E9Ehz+1So8gwL050h4NCsvVlc/wC5+nr/AJ/ LdVHRphj9hEEJVEPSpvkeQgV+DlF9x/h0x/jd99dszy+8hi13l8X/KWMNS4Ltay6tb/Ef57+/0FYN/ BkMNqqWT/Vw4669/hXRMM/K35E/Tp+iKjX8FdkZgce/H6/4D17+1ZDiIzZ9qXpt2IulXo2IKe576z1PT /1G4PFgLeUOBXw2Rw1bY8x/AIlXECJpvxIfxb+rw7p3zEOuTn1xkfZDS1/+Eq1hmdY5/wDwn/w6stB+ 1XY/1UFKZN8ZRqP2z9S0K7qXAlxoh6jLf57Iu3uYixs2mye25h/ 4X17yu4HgRP4r99SD1ubAC6v0isW4O7x/CvWNK+G6sdUqIm/l5p7yuN6K1w56+x/Y/P5/0/7HQB+ 5GsdZdMiVkGVHivvsUZXCf732WjiqgHmOgL/G58lfP6S/hg9Luo95HP0+ JWbb0O8LdZ1QLNtnJiMbN5OsGnjnX7ngRlNk+2W+WnfMjuALfPrEdPRHOIcybmWdeaqG7lqx823J/ AkxpkVnw6u+D4L8YnSbQolPx672n5C4pShOsOk7GKPgiv3+h4j5cvtr6M+0ubkEtgEgY/Kjxl+ 853kh1eut28I/ALHmhXvwx+Fb3Is7/wDaz+STuLuD25r1XIVsAtI9NcMBt8lOr+ 5lMaWNHzx8lRB0Ts6ArZqLpH2ffdzl3I5oaWC0Q+MtgjdIGf882Bfd0vcjMcRceyP24JZw6UB52/ 3QxyUAjDyvCdHqIZss5k45MHW5Y3XxXjpODIFtjgllPmgHGgHq1lZ/ADx/ 6k0MrieOARoq2DuVclN5NzmVxmZHi6VpPkNcnwgqV6WdmRxF3lI6ctYK/ gJEFpgt2w8Y0M7LrDw53wpsGd8NlFyBd/CH+G/+L3oip1IhDdCBEb7kj+4f7n6+/ b5G0sm66YMFxh0WAiAQ4F5/APWp3/hW50s2F9faBouye2ji50+3rj+dAGdpsbQSrDuZmV+n+ x017akFV3kue0MKY0+l2H4B5CQ3/Cy9rqDtQLf5/OfnPX/GoBsp5cxCGHtPso58+vHXpyOP1/CgDpr20 +21CdrFxvOL9dapS0/dpAfy9dS3lcQLS0Ju4q0qiz4R2b0C4456LElsQ0/ W4cZO3jt40YR3NThqadFPnPp/fRnYT++/545+ q4T0nR3VYOhJsTBFm3LO0UCVA4nW9yeLeZ4MOanozaE3i2+Xz14+ynsj2b4oFbL79yo3/wDnp/ Ol8O4nAnIdQl9Cq/tU98zjWUSkr23aLWCkgozVowt+o/D3x+ uZfVBOrLS0hLo2m0fz57F5g2tyH11nZ4Xn898o8mf3837YgVTes1mtc40dfQjxsz9/+ n0YUV7Qrmh5ALEZ47lLjiaPHBAHmBpc6+f/HARUoOIj41XaSEZo2g7d4Fxu5wvv/iAh0huVcy/Zy+/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
[2016-07-04 22:58] VITALS: BP 146/99
== END 2016-07-04 22:54 ==
LOC: ED 21:11
DX: S06.0X0A Concussion without loss of consciousness, initial encounter (principal); S13.4XXA Sprain of ligaments of cervical spine, initial encounter; S00.512A Abrasion of oral cavity, initial encounter; F17.200 Nicotine dependence, unspecified, uncomplicated; V89.2XXA Person injured in unspecified motor-vehicle accident, traffic, initial encounter; Y93.89 Activity, other specified; Y99.9 Unspecified external cause status; Y92.410 Unspecified street and highway as the place of occurrence of the external cause
CPT/HCPCS: 90471; 90715